=== PATIENT | female | born 1945 | race Asian ===

== ENCOUNTER 2018-01-23 13:38 | Inpatient (IN) | payer MEDICARE, BC ==
[~2018-01-23] VITALS: Ht 152.4 cm; Wt 61.7 kg
[2018-01-23] MEDS ORDERED: Norco 5mg/325mg tab ORAL ONE (14:00)
[2018-01-23 14:08] VITALS: BP 128/69
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
--- NOTE | 2018-01-23 16:27 | Diagnostic Imaging Report ---
Clinical Indication: Chest pain, lateral rib cage tenderness, pain with inhalation Technique: Spiral acquisitions obtained through the chest. No IV contrast utilized, reason not stated. Multiplanar reconstructions generated. Total dose length product 615.97 mGycm. CTDIvol(s) 17.31 mGy. Dose reduction achieved using automated exposure control Comparison: none Findings: There is a subtle nondisplaced fracture of the anterolateral left seventh rib. There is also a fracture of the anterolateral left sixth rib near the costochondral margin. There is a fracture of the lateral ninth rib which is nondisplaced. No definite rib fractures on the right. No other fractures demonstrated. No evidence of pneumothorax or pulmonary contusion. No significant chest wall contusion demonstrated. The lungs are clear separate for minimal basilar atelectatic changes. No infiltrates, effusions, or congestion. The heart size is normal. No pericardial effusion. No substernal hematoma. No mediastinal or hilar mass or adenopathy. The included portions of the thyroid are unremarkable. No axillary or chest wall mass or adenopathy. Included upper abdominal anatomy demonstrates considerable fluid in the stomach. Impression: Multiple left rib fractures, as described. No evidence of underlying pneumothorax Minimal basilar atelectasis. Otherwise clear lungs The CT scanner at [facility] is accredited by the [employer] and the scans are performed using protocols designed to limit radiation exposure to as low as reasonably achievable to attain images of sufficient resolution adequate for diagnostic evaluation.
[2018-01-23] MEDS ORDERED: Morphine Sulfate 4mg/ml Inj (IV/IM USE ONLY) IVP ONE (16:45)
[2018-01-23] MEDS ORDERED: LOSARTAN POTASS50 MG ORAL (17:15)
[2018-01-23 17:22] LABS: ANION GAP 8 mmol/L (5-15); BASOPHILS % (AUTO) 0.7 % (0.0-2.0); BLOOD UREA NITROGEN 20 mg/dL (7-18); CALCIUM 8.9 MG/DL (8.5-10.1); CARBON DIOXIDE 27 MMOL/L (21-32); CHLORIDE 105 MMOL/L (98-107); EOSINOPHILS % (AUTO) 0.5 % (0.0-3.0); HEMATOCRIT 37.5 % (37.0-47.0); HEMOGLOBIN 13.1 G/DL (12.0-16.0); LYMPHOCYTES % (AUTO) 19.3 % (20.0-45.0); MEAN CORPUSCULAR VOLUME 93 FL (80-99); MONOCYTES % (AUTO) 6.8 % (1.0-10.0); NEUTROPHILS % (AUTO) 72.8 % (45.0-75.0); PLATELET COUNT 163 K/UL (150-450); POTASSIUM 3.7 MMOL/L (3.5-5.1); RED BLOOD COUNT 4.01 M/UL (4.20-5.40); RED CELL DISTRIBUTION WIDTH 11.3 % (11.6-14.8); SODIUM 140 MMOL/L (136-145); WHITE BLOOD COUNT 7.5 K/UL (4.8-10.8)
[2018-01-23 17:27] LABS: ALANINE AMINOTRANSFERASE 43 U/L (12-78); ALBUMIN 3.2 G/DL (3.4-5.0); ALBUMIN/GLOBULIN RATIO 0.8 (1.0-2.7); ALKALINE PHOSPHATASE 57 U/L (46-116); ASPARTATE AMINO TRANSFERASE 31 U/L (15-37); BILIRUBIN,TOTAL 0.6 MG/DL (0.2-1.0)
[2018-01-23] MEDS ORDERED: LEVAQUIN500 MG ORAL (17:42)
[2018-01-23] MEDS ORDERED: AMOXICILLI250 MG/5 M ORAL (17:42)
[2018-01-23] MEDS ORDERED: AMLODIPINE BESYL5 MG ORAL (17:42)
--- NOTE | 2018-01-23 19:07 | History & Physical ---
History and Physical History & Physicial Dictated for Int Med-Dr Durham no. [id number]. Marcus French MD Jan 23, 2018 19:07
[2018-01-23 20:00] VITALS: BP 135/79
[2018-01-23] MEDS ORDERED: Miralax 17gm pkt ORAL PRN (20:45)
[2018-01-23] MEDS ORDERED: Mylanta II UD 30ml ORAL PRN (20:45)
[2018-01-23] MEDS ORDERED: Zolpidem 5mg tab ORAL PRN (20:45)
[2018-01-23] MEDS ORDERED: Morphine Sulfate 4mg/ml Inj (IV/IM USE ONLY) IVP PRN (20:45)
[2018-01-23] MEDS ORDERED: Morphine Sulfate 2mg/ml Inj IVP PRN (20:45)
[2018-01-23] MEDS ORDERED: LORazepam Inj 2mg/ml 1ml IV PRN (20:45)
[2018-01-23 20:50] VITALS: BP 126/71
[2018-01-23] MEDS: Heparin 5000 units/ml inj SUBQ SCH (21:00)
[2018-01-23 21:20] VITALS: BP 129/70
[2018-01-23] MEDS ORDERED: Losartan 50mg tab ORAL SCH (21:25)
[2018-01-23] MEDS ORDERED: ALPRAZolam 0.5mg tab ORAL PRN (21:28)
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
[2018-01-24] VITALS: BP 109/65
[2018-01-24 04:00] VITALS: BP 118/70
[2018-01-24 06:17] LABS: BASOPHILS % (AUTO) 0.6 % (0.0-2.0); EOSINOPHILS % (AUTO) 0.7 % (0.0-3.0); HEMATOCRIT 38.1 % (37.0-47.0); HEMOGLOBIN 13.3 G/DL (12.0-16.0); LYMPHOCYTES % (AUTO) 19.6 % (20.0-45.0); MEAN CORPUSCULAR VOLUME 92 FL (80-99); MONOCYTES % (AUTO) 7.8 % (1.0-10.0); NEUTROPHILS % (AUTO) 71.3 % (45.0-75.0); PLATELET COUNT 158 K/UL (150-450); RED BLOOD COUNT 4.16 M/UL (4.20-5.40); RED CELL DISTRIBUTION WIDTH 11.7 % (11.6-14.8); WHITE BLOOD COUNT 6.5 K/UL (4.8-10.8)
[2018-01-24 06:38] LABS: ALANINE AMINOTRANSFERASE 37 U/L (12-78); ALBUMIN 3.1 G/DL (3.4-5.0); ALBUMIN/GLOBULIN RATIO 0.8 (1.0-2.7); ALKALINE PHOSPHATASE 53 U/L (46-116); ANION GAP 5 mmol/L (5-15); ASPARTATE AMINO TRANSFERASE 26 U/L (15-37); BILIRUBIN,TOTAL 0.7 MG/DL (0.2-1.0); BLOOD UREA NITROGEN 17 mg/dL (7-18); CALCIUM 8.5 MG/DL (8.5-10.1); CARBON DIOXIDE 28 MMOL/L (21-32); CHLORIDE 105 MMOL/L (98-107); CREATININE 0.9 MG/DL (0.55-1.30); POTASSIUM 3.4 MMOL/L (3.5-5.1); SODIUM 138 MMOL/L (136-145)
[2018-01-24 08:00] VITALS: BP 110/67
[2018-01-24] MEDS: Heparin 5000 units/ml inj SUBQ SCH ×2 (09:11→20:43)
[2018-01-24] MEDS: Losartan 50mg tab ORAL SCH ×2 (09:11→20:33)
[2018-01-24] MEDS ORDERED: Norco 5mg/325mg tab ORAL PRN (09:15)
--- NOTE | 2018-01-24 09:15 | Consultation ---
History of Present Illness General Date patient seen: Jan 24, 2018 Present Illness Allergies: Coded Allergies: No Known Allergies (Unverified , 01/23/18) Medication History Scheduled Amlodipine Besylate* (Amlodipine Besylate*), 5 MG ORAL DAILY, (Reported) Amoxicillin* (Amoxicillin*), 500 MG ORAL EVERY 8 HOURS, (Reported) Levofloxacin* (Levaquin*), 500 MG ORAL DAILY, (Reported) Losartan Potassium* (Losartan Potassium*), 100 MG ORAL DAILY, (Reported) Patient History Healthcare decision maker N Resuscitation status Advanced Directive on File Physical Exam Last 24 Hour Vital Signs Date Time Temp Pulse Resp B/P (MAP) Pulse Ox O2 Delivery O2 Flow Rate FiO2 01/24/18 09:11 116/73 01/24/18 04:00 97.7 80 18 118/70 (86) 98 01/24/18 00:00 98.8 87 18 109/65 (80) 98 01/23/18 21:24 Room Air 01/23/18 21:20 98.0 84 20 129/70 (89) 98 01/23/18 21:00 97.6 75 18 126/71 100 Room Air 01/23/18 20:50 97.6 75 18 126/71 100 Room Air 01/23/18 20:00 98.3 79 18 135/79 98 Room Air 01/23/18 18:08 98.1 01/23/18 18:08 98.1 01/23/18 14:08 98.1 86 16 128/69 96 Room Air 01/23/18 13:54 98.1 86 16 128/69 96 Room Air Intake and Output 01/23/18 01/24/18 19:00 07:00 Intake Total 120 ml 120 ml Balance 120 ml 120 ml Intake Oral 120 ml 120 ml # Voids 3 Laboratory Tests Test 01/23/18 16:50 01/23/18 17:50 01/24/18 05:40 White Blood Count 7.5 K/UL (4.8-10.8) 6.5 K/UL (4.8-10.8) Red Blood Count 4.01 M/UL (4.20-5.40) L 4.16 M/UL (4.20-5.40) L Hemoglobin 13.1 G/DL (12.0-16.0) 13.3 G/DL (12.0-16.0) Hematocrit 37.5 % (37.0-47.0) 38.1 % (37.0-47.0) Mean Corpuscular Volume 93 FL (80-99) 92 FL (80-99) Mean Corpuscular Hemoglobin 32.6 PG (27.0-31.0) H 31.9 PG (27.0-31.0) H Mean Corpuscular Hemoglobin Concent 34.9 G/DL (32.0-36.0) 34.8 G/DL (32.0-36.0) Red Cell Distribution Width 11.3 % (11.6-14.8) L 11.7 % (11.6-14.8) Platelet Count 163 K/UL (150-450) 158 K/UL (150-450) Mean Platelet Volume 7.6 FL (6.5-10.1) 8.0 FL (6.5-10.1) Neutrophils (%) (Auto) 72.8 % (45.0-75.0) 71.3 % (45.0-75.0) Lymphocytes (%) (Auto) 19.3 % (20.0-45.0) L 19.6 % (20.0-45.0) L Monocytes (%) (Auto) 6.8 % (1.0-10.0) 7.8 % (1.0-10.0) Eosinophils (%) (Auto) 0.5 % (0.0-3.0) 0.7 % (0.0-3.0) Basophils (%) (Auto) 0.7 % (0.0-2.0) 0.6 % (0.0-2.0) Sodium Level 140 MMOL/L (136-145) 138 MMOL/L (136-145) Potassium Level 3.7 MMOL/L (3.5-5.1) 3.4 MMOL/L (3.5-5.1) L Chloride Level 105 MMOL/L (98-107) 105 MMOL/L (98-107) Carbon Dioxide Level 27 MMOL/L (21-32) 28 MMOL/L (21-32) Anion Gap 8 mmol/L (5-15) 5 mmol/L (5-15) Blood Urea Nitrogen 20 mg/dL (7-18) H 17 mg/dL (7-18) Creatinine 1.0 MG/DL (0.55-1.30) 0.9 MG/DL (0.55-1.30) Estimat Glomerular Filtration Rate mL/min (>60) mL/min (>60) Glucose Level 136 MG/DL (74-106) H 131 MG/DL (74-106) H Calcium Level 8.9 MG/DL (8.5-10.1) 8.5 MG/DL (8.5-10.1) Total Bilirubin 0.6 MG/DL (0.2-1.0) 0.7 MG/DL (0.2-1.0) Aspartate Amino Transf (AST/SGOT) 31 U/L (15-37) 26 U/L (15-37) Alanine Aminotransferase (ALT/SGPT) 43 U/L (12-78) 37 U/L (12-78) Alkaline Phosphatase 57 U/L (46-116) 53 U/L (46-116) Total Protein 7.1 G/DL (6.4-8.2) 6.8 G/DL (6.4-8.2) Albumin 3.2 G/DL (3.4-5.0) L 3.1 G/DL (3.4-5.0) L Globulin 3.9 g/dL 3.7 g/dL Albumin/Globulin Ratio 0.8 (1.0-2.7) L 0.8 (1.0-2.7) L Prothrombin Time 10.8 SEC (9.30-11.50) Prothromb Time International Ratio 1.0 (0.9-1.1) Activated Partial Thromboplast Time 26 SEC (23-33) Troponin I 0.000 ng/mL (0.000-0.056) Lipase 206 U/L (73-393) Thyroid Stimulating Hormone (TSH) 5.393 uiU/mL (0.358-3.740) Height (Feet): 5 Height (Inches): 0.00 Weight (Pounds): 136 Medications Current Medications Medications (Trade) Dose Ordered Sig/[place] Route PRN Reason Start Time Stop Time Status Last Admin Dose Admin Acetaminophen (Tylenol) 650 mg Q4H PRN ORAL fever 01/23/18 20:45 02/22/18 20:44 Al Hydroxide/Mg Hydroxide (Mylanta II) 30 ml Q6H PRN ORAL dyspepsia 01/23/18 20:45 02/22/18 20:44 Alprazolam (Xanax) 0.5 mg Q6H PRN ORAL For Anxiety 01/23/18 21:28 01/30/18 21:27 Barium Sulfate (Readi-Cat 2) 450 ml NOW PRN ORAL Radiology Procedure 01/23/18 18:45 01/25/18 18:45 Dextrose (Dextrose 50%) 25 ml Q30M PRN IV Hypoglycemia 01/23/18 20:45 02/22/18 20:44 Dextrose (Dextrose 50%) 50 ml Q30M PRN IV Hypoglycemia 01/23/18 20:45 02/22/18 20:44 Heparin Sodium (Porcine) (Heparin 5000 units/ml) 5,000 units EVERY 12 HOURS SUBQ 01/23/18 21:00 02/22/18 20:59 01/24/18 09:11 Losartan Potassium (Cozaar) 50 mg EVERY 12 HOURS ORAL 01/24/18 09:00 02/22/18 21:24 01/24/18 09:11 Morphine Sulfate (Morphine Sulfate) 2 mg Q4H PRN IVP For Pain 4-6 01/23/18 20:45 01/30/18 20:44 Morphine Sulfate (Morphine Sulfate) 4 mg Q4H PRN IVP For Pain 7-10 01/23/18 20:45 01/30/18 20:44 Ondansetron HCl (Zofran) 4 mg Q6H PRN IVP Nausea & Vomiting 01/23/18 20:45 02/22/18 20:44 Polyethylene Glycol (Miralax) 17 gm HSPRN PRN ORAL Constipation 01/23/18 20:45 02/22/18 20:44 Zolpidem Tartrate (Ambien) 5 mg HSPRN PRN ORAL Insomnia 01/23/18 20:45 01/30/18 20:44 Assessment/Plan Assessment/Plan (1) Multiple rib fractures (2) Intractable pain Seen dictated Aldo Carey Jan 24, 2018 09:15
[2018-01-24 12:00] VITALS: BP 121/75
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
[2018-01-24] MEDS ORDERED: HYDROcodone/Acetamin 10/325 tab ORAL PRN (15:15)
[2018-01-24] MEDS ORDERED: Morphine Sulfate 4mg/ml Inj (IV/IM USE ONLY) IVP PRN (15:15)
[2018-01-24 16:00] VITALS: BP 101/60
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
[2018-01-24] MEDS: Docusate 100mg cap ORAL SCH (17:04)
[2018-01-24 20:00] VITALS: BP 107/60
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
--- NOTE | 2018-01-24 20:15 | General Progress Note ---
Assessment/Plan Problem List: (1) Anxiety disorder ICD Codes: F41.9 - Anxiety disorder, unspecified SNOMED: 526589589 Status: stable, progressing Assessment/Plan dc per larsen lonnie provided ro/st d/w daughter Subjective Date patient seen: Jan 24, 2018 Neurologic/Psychiatric: Reports: anxiety, depressed, emotional problems Allergies: Coded Allergies: No Known Allergies (Unverified , 01/23/18) Objective Last 24 Hour Vital Signs Date Time Temp Pulse Resp B/P (MAP) Pulse Ox O2 Delivery O2 Flow Rate FiO2 01/24/18 16:00 98.0 75 18 101/60 (74) 98 01/24/18 12:00 97.6 83 18 121/75 (90) 98 01/24/18 09:11 116/73 01/24/18 09:00 Room Air 01/24/18 08:00 98.1 77 18 110/67 (81) 98 01/24/18 04:00 97.7 80 18 118/70 (86) 98 01/24/18 00:00 98.8 87 18 109/65 (80) 98 01/23/18 21:24 Room Air 01/23/18 21:20 98.0 84 20 129/70 (89) 98 01/23/18 21:00 97.6 75 18 126/71 100 Room Air 01/23/18 20:50 97.6 75 18 126/71 100 Room Air Intake and Output 01/23/18 01/24/18 18:59 06:59 Intake Total 120 ml 120 ml Balance 120 ml 120 ml Intake Oral 120 ml 120 ml # Voids 3 Laboratory Tests 01/24/18 05:40: White Blood Count 6.5, Red Blood Count 4.16L, Hemoglobin 13.3, Hematocrit 38.1, Mean Corpuscular Volume 92, Mean Corpuscular Hemoglobin 31.9H, Mean Corpuscular Hemoglobin Concent 34.8, Red Cell Distribution Width 11.7, Platelet Count 158, Mean Platelet Volume 8.0, Neutrophils (%) (Auto) 71.3, Lymphocytes (%) (Auto) 19.6L, Monocytes (%) (Auto) 7.8, Eosinophils (%) (Auto) 0.7, Basophils (%) (Auto ) 0.6, Sodium Level 138, Potassium Level 3.4L, Chloride Level 105, Carbon Dioxide Level 28, Anion Gap 5, Blood Urea Nitrogen 17, Creatinine 0.9, Estimat Glomerular Filtration Rate , Glucose Level 131H, Calcium Level 8.5, Total Bilirubin 0.7, Aspartate Amino Transf (AST/SGOT) 26, Alanine Aminotransferase ( ALT/SGPT) 37, Alkaline Phosphatase 53, Total Protein 6.8, Albumin 3.1L, Globulin 3.7, Albumin/Globulin Ratio 0.8L, Thyroid Stimulating Hormone (TSH) 5.393H Height (Feet): 5 Height (Inches): 0.00 Weight (Pounds): 136 General Appearance: no apparent distress, alert Neurologic: oriented x 3, responsive, depressed affect Mac Brown MD Jan 24, 2018 20:15
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
[2018-01-25] VITALS (7 sets, daily range): BP systolic 94–124; BP diastolic 55–78
[2018-01-25 06:36] LABS: ANION GAP 3 mmol/L (5-15); BASOPHILS % (AUTO) 0.6 % (0.0-2.0); BLOOD UREA NITROGEN 15 mg/dL (7-18); CALCIUM 8.9 MG/DL (8.5-10.1); CARBON DIOXIDE 31 MMOL/L (21-32); CHLORIDE 107 MMOL/L (98-107); CREATININE 0.8 MG/DL (0.55-1.30); EOSINOPHILS % (AUTO) 1.1 % (0.0-3.0); HEMOGLOBIN 13.6 G/DL (12.0-16.0); LYMPHOCYTES % (AUTO) 32.6 % (20.0-45.0); MEAN CORPUSCULAR VOLUME 92 FL (80-99); MONOCYTES % (AUTO) 6.9 % (1.0-10.0); NEUTROPHILS % (AUTO) 58.8 % (45.0-75.0); PLATELET COUNT 157 K/UL (150-450); POTASSIUM 4.5 MMOL/L (3.5-5.1); RED BLOOD COUNT 4.23 M/UL (4.20-5.40); RED CELL DISTRIBUTION WIDTH 11.5 % (11.6-14.8); SODIUM 140 MMOL/L (136-145); WHITE BLOOD COUNT 6.1 K/UL (4.8-10.8)
[2018-01-25] MEDS: Losartan 50mg tab ORAL SCH ×2 (08:43→20:50)
[2018-01-25] MEDS: Docusate 100mg cap ORAL SCH ×2 (08:43→18:00)
[2018-01-25] MEDS: Heparin 5000 units/ml inj SUBQ SCH ×2 (08:44→20:51)
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
[2018-01-25] MEDS ORDERED: Norco 5mg/325mg tab ORAL PRN (09:30)
[2018-01-25] MEDS ORDERED: LORazepam Inj 2mg/ml 1ml IV SCH ×2 (09:33→13:49)
--- NOTE | 2018-01-25 12:12 | Pulmonology Progress Note ---
Assessment/Plan Problems: (1) Multiple rib fractures (2) Intractable pain (3) History of hypertension Assessment/Plan pain management MRI of spine to rule out fracture symptomatic treatment dvt prophylaxis dc planning Subjective ROS Limited/Unobtainable: No Interval Events: pain better controlled Allergies: Coded Allergies: No Known Allergies (Unverified , 01/23/18) Objective Last 24 Hour Vital Signs Date Time Temp Pulse Resp B/P (MAP) Pulse Ox O2 Delivery O2 Flow Rate FiO2 01/25/18 08:43 124/73 01/25/18 08:30 Room Air 01/25/18 08:00 97.5 91 21 124/73 (90) 98 01/25/18 04:00 98.1 73 19 102/63 (76) 96 01/25/18 00:00 97.3 62 19 116/55 (75) 97 01/24/18 21:00 Room Air 01/24/18 20:33 107/60 01/24/18 20:00 97.0 74 19 107/60 (76) 96 01/24/18 16:00 98.0 75 18 101/60 (74) 98 Intake and Output 01/24/18 01/25/18 19:00 07:00 Intake Total 480 ml 120 ml Output Total 30 ml Balance 480 ml 90 ml Intake Oral 480 ml 120 ml Output Emesis 30 ml # Voids 3 2 # Bowel Movements 1 General Appearance: WD/WN HEENT: normocephalic, atraumatic Respiratory/Chest: chest wall non-tender, lungs clear Breasts: no masses Cardiovascular: normal rate Abdomen: normal bowel sounds, no organomegaly Genitourinary: normal external genitalia Extremities: no cyanosis, no clubbing Skin: no rash 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 Lymphatic: no neck adenopathy Laboratory Tests 01/25/18 05:40: White Blood Count 6.1, Red Blood Count 4.23, Hemoglobin 13.6, Hematocrit 39.0, Mean Corpuscular Volume 92, Mean Corpuscular Hemoglobin 32.2H, Mean Corpuscular Hemoglobin Concent 34.9, Red Cell Distribution Width 11.5L, Platelet Count 157, Mean Platelet Volume 7.7, Neutrophils (%) (Auto) 58.8, Lymphocytes (%) (Auto) 32.6, Monocytes (%) (Auto) 6.9, Eosinophils (%) (Auto) 1.1, Basophils (%) (Auto ) 0.6, Sodium Level 140, Potassium Level 4.5, Chloride Level 107, Carbon Dioxide Level 31, Anion Gap 3L, Blood Urea Nitrogen 15, Creatinine 0.8, Estimat Glomerular Filtration Rate , Glucose Level 107H, Calcium Level 8.9 Current Medications Medications (Trade) Dose Ordered Sig/[place] Route PRN Reason Start Time Stop Time Status Last Admin Dose Admin Acetaminophen (Tylenol) 650 mg Q4H PRN ORAL fever 01/23/18 20:45 02/22/18 20:44 Acetaminophen/ Hydrocodone Bitart ([place] 5/325) 1 tab Q4H PRN ORAL Moderate Pain (Pain Scale 4-6) 01/25/18 09:30 02/01/18 09:29 Al Hydroxide/Mg Hydroxide (Mylanta II) 30 ml Q6H PRN ORAL dyspepsia 01/23/18 20:45 02/22/18 20:44 Alprazolam (Xanax) 0.5 mg Q6H PRN ORAL For Anxiety 01/23/18 21:28 01/30/18 21:27 Barium Sulfate (Readi-Cat 2) 450 ml NOW PRN ORAL Radiology Procedure 01/23/18 18:45 01/25/18 18:45 Dextrose (Dextrose 50%) 25 ml Q30M PRN IV Hypoglycemia 01/23/18 20:45 02/22/18 20:44 Dextrose (Dextrose 50%) 50 ml Q30M PRN IV Hypoglycemia 01/23/18 20:45 02/22/18 20:44 Docusate Sodium (Colace) 100 mg TWICE A DAY ORAL 01/24/18 18:00 02/23/18 17:59 01/25/18 08:43 Gabapentin (Neurontin) 100 mg THREE TIMES A DAY ORAL 01/25/18 09:30 02/24/18 09:29 01/25/18 09:38 Heparin Sodium (Porcine) (Heparin 5000 units/ml) 5,000 units EVERY 12 HOURS SUBQ 01/23/18 21:00 02/22/18 20:59 01/25/18 08:44 Lidocaine (Lidoderm 5% PATCH) 1 patch DAILY TDERMAL 01/25/18 09:00 02/24/18 08:59 01/25/18 08:44 Losartan Potassium (Cozaar) 50 mg EVERY 12 HOURS ORAL 01/24/18 09:00 02/22/18 21:24 01/25/18 08:43 Morphine Sulfate (Morphine Sulfate) 4 mg Q4H PRN IVP severe pain 01/24/18 15:15 01/31/18 15:14 Ondansetron HCl (Zofran) 4 mg Q6H PRN IVP Nausea & Vomiting 01/23/18 20:45 02/22/18 20:44 Polyethylene Glycol (Miralax) 17 gm HSPRN PRN ORAL Constipation 01/23/18 20:45 02/22/18 20:44 Zolpidem Tartrate (Ambien) 5 mg HSPRN PRN ORAL Insomnia 01/23/18 20:45 01/30/18 20:44 Pawan Sam MD Jan 25, 2018 12:12
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
[2018-01-26 04:00] VITALS: BP 112/71
[2018-01-26 06:23] LABS: BASOPHILS % (AUTO) 0.8 % (0.0-2.0); EOSINOPHILS % (AUTO) 1.7 % (0.0-3.0); HEMATOCRIT 42.2 % (37.0-47.0); HEMOGLOBIN 14.2 G/DL (12.0-16.0); MEAN CORPUSCULAR VOLUME 93 FL (80-99); MONOCYTES % (AUTO) 7.4 % (1.0-10.0); NEUTROPHILS % (AUTO) 54.2 % (45.0-75.0); PLATELET COUNT 171 K/UL (150-450); RED BLOOD COUNT 4.56 M/UL (4.20-5.40); RED CELL DISTRIBUTION WIDTH 11.5 % (11.6-14.8); WHITE BLOOD COUNT 6.2 K/UL (4.8-10.8)
[2018-01-26 06:30] LABS: ANION GAP 5 mmol/L (5-15); BLOOD UREA NITROGEN 14 mg/dL (7-18); CALCIUM 9.1 MG/DL (8.5-10.1); CARBON DIOXIDE 32 MMOL/L (21-32); CHLORIDE 105 MMOL/L (98-107); CREATININE 0.8 MG/DL (0.55-1.30); POTASSIUM 4.3 MMOL/L (3.5-5.1); SODIUM 142 MMOL/L (136-145)
[2018-01-26 08:00] VITALS: BP 116/78
[2018-01-26] MEDS: Docusate 100mg cap ORAL SCH ×2 (08:44→17:00)
[2018-01-26] MEDS: Losartan 50mg tab ORAL SCH ×2 (08:45→21:00)
[2018-01-26] MEDS: Heparin 5000 units/ml inj SUBQ SCH ×2 (08:50→21:00)
[2018-01-26 12:00] VITALS: BP 95/56
[2018-01-26 15:50] VITALS: BP 121/77
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
[2018-01-26 20:00] VITALS: BP 102/57
--- NOTE | 2018-01-26 22:56 | General Progress Note ---
Assessment/Plan Problem List: (1) Anxiety disorder ICD Codes: F41.9 - Anxiety disorder, unspecified SNOMED: [id number] Assessment/Plan dc atkita husainapolinarrita admienn provided ro/st d/w daughter Subjective Neurologic/Psychiatric: Reports: anxiety, depressed, emotional problems Allergies: Coded Allergies: No Known Allergies (Unverified , 01/23/18) Objective Last 24 Hour Vital Signs Date Time Temp Pulse Resp B/P (MAP) Pulse Ox O2 Delivery O2 Flow Rate FiO2 01/26/18 21:00 102/57 01/26/18 21:00 Room Air 01/26/18 20:00 98.1 75 20 102/57 (72) 95 01/26/18 15:50 97.7 71 18 121/77 (92) 95 01/26/18 13:03 97.5 01/26/18 12:00 97.5 70 16 95/56 (69) 95 01/26/18 09:00 Room Air 01/26/18 08:45 116/78 01/26/18 08:00 97.7 73 16 116/78 (91) 95 01/26/18 04:00 97.5 71 19 112/71 (85) 96 01/25/18 23:51 98.1 65 18 100/64 (76) 97 Intake and Output 01/25/18 01/26/18 19:00 07:00 Intake Total 480 ml Balance 480 ml Intake Oral 480 ml # Voids 2 1 # Bowel Movements 1 Laboratory Tests 01/26/18 05:10: White Blood Count 6.2, Red Blood Count 4.56, Hemoglobin 14.2, Hematocrit 42.2, Mean Corpuscular Volume 93, Mean Corpuscular Hemoglobin 31.1H, Mean Corpuscular Hemoglobin Concent 33.6, Red Cell Distribution Width 11.5L, Platelet Count 171, Mean Platelet Volume 7.9, Neutrophils (%) (Auto) 54.2, Lymphocytes (%) (Auto) 36.0, Monocytes (%) (Auto) 7.4, Eosinophils (%) (Auto) 1.7, Basophils (%) (Auto ) 0.8, Sodium Level 142, Potassium Level 4.3, Chloride Level 105, Carbon Dioxide Level 32, Anion Gap 5, Blood Urea Nitrogen 14, Creatinine 0.8, Estimat Glomerular Filtration Rate , Glucose Level 101, Calcium Level 9.1 Height (Feet): 5 Height (Inches): 0.00 Weight (Pounds): 136 General Appearance: alert, moderate distress Neurologic: oriented x 3, responsive, depressed affect Mac Brown MD Jan 26, 2018 22:56
[2018-01-27 04:00] VITALS: BP 110/62
[2018-01-27 06:10] LABS: BASOPHILS % (AUTO) 0.6 % (0.0-2.0); EOSINOPHILS % (AUTO) 2.1 % (0.0-3.0); HEMOGLOBIN 13.1 G/DL (12.0-16.0); LYMPHOCYTES % (AUTO) 42.8 % (20.0-45.0); MEAN CORPUSCULAR VOLUME 92 FL (80-99); MONOCYTES % (AUTO) 8.1 % (1.0-10.0); NEUTROPHILS % (AUTO) 46.4 % (45.0-75.0); PLATELET COUNT 152 K/UL (150-450); RED BLOOD COUNT 4.12 M/UL (4.20-5.40); RED CELL DISTRIBUTION WIDTH 11.6 % (11.6-14.8); WHITE BLOOD COUNT 4.8 K/UL (4.8-10.8)
[2018-01-27 07:09] LABS: ANION GAP 8 mmol/L (5-15); BLOOD UREA NITROGEN 13 mg/dL (7-18); CALCIUM 8.8 MG/DL (8.5-10.1); CARBON DIOXIDE 30 MMOL/L (21-32); CHLORIDE 105 MMOL/L (98-107); CREATININE 0.9 MG/DL (0.55-1.30); POTASSIUM 4.2 MMOL/L (3.5-5.1); SODIUM 143 MMOL/L (136-145)
[2018-01-27 08:00] VITALS: BP 129/79
[2018-01-27] MEDS: Docusate 100mg cap ORAL SCH ×2 (08:52→18:19)
[2018-01-27] MEDS: Losartan 50mg tab ORAL SCH ×2 (08:53→21:08)
[2018-01-27] MEDS: Heparin 5000 units/ml inj SUBQ SCH ×2 (08:54→21:07)
[2018-01-27] MEDS ORDERED: LORazepam Inj 2mg/ml 1ml IV PRN (11:00)
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
[2018-01-27 12:00] VITALS: BP 131/79
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
--- NOTE | 2018-01-27 14:16 | Cardiac Electrophysiology PN ---
Subjective Subjective [id number] Objective Last 24 Hour Vital Signs Date Time Temp Pulse Resp B/P (MAP) Pulse Ox O2 Delivery O2 Flow Rate FiO2 01/27/18 12:00 98.0 60 20 131/79 (96) 97 01/27/18 09:00 Room Air 01/27/18 08:53 129/79 01/27/18 08:00 97.9 77 20 129/79 (96) 97 01/27/18 04:00 97.9 67 16 110/62 (78) 97 01/26/18 21:00 102/57 01/26/18 21:00 Room Air 01/26/18 20:00 98.1 75 20 102/57 (72) 95 01/26/18 15:50 97.7 71 18 121/77 (92) 95 Intake and Output 01/26/18 01/27/18 19:00 07:00 Intake Total 220 ml Balance 220 ml Intake Oral 220 ml # Voids 3 2 Laboratory Tests Test 01/27/18 04:40 White Blood Count 4.8 K/UL (4.8-10.8) Red Blood Count 4.12 M/UL (4.20-5.40) L Hemoglobin 13.1 G/DL (12.0-16.0) Hematocrit 38.0 % (37.0-47.0) Mean Corpuscular Volume 92 FL (80-99) Mean Corpuscular Hemoglobin 31.7 PG (27.0-31.0) H Mean Corpuscular Hemoglobin Concent 34.4 G/DL (32.0-36.0) Red Cell Distribution Width 11.6 % (11.6-14.8) Platelet Count 152 K/UL (150-450) Mean Platelet Volume 7.3 FL (6.5-10.1) Neutrophils (%) (Auto) 46.4 % (45.0-75.0) Lymphocytes (%) (Auto) 42.8 % (20.0-45.0) Monocytes (%) (Auto) 8.1 % (1.0-10.0) Eosinophils (%) (Auto) 2.1 % (0.0-3.0) Basophils (%) (Auto) 0.6 % (0.0-2.0) Sodium Level 143 MMOL/L (136-145) Potassium Level 4.2 MMOL/L (3.5-5.1) Chloride Level 105 MMOL/L (98-107) Carbon Dioxide Level 30 MMOL/L (21-32) Anion Gap 8 mmol/L (5-15) Blood Urea Nitrogen 13 mg/dL (7-18) Creatinine 0.9 MG/DL (0.55-1.30) Estimat Glomerular Filtration Rate mL/min (>60) Glucose Level 97 MG/DL (74-106) Calcium Level 8.8 MG/DL (8.5-10.1) Benjie Julio MD Jan 27, 2018 14:16
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
[2018-01-27 15:54] VITALS: BP 110/60
[2018-01-27 20:00] VITALS: BP 138/84
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
--- NOTE | 2018-01-27 23:53 | General Progress Note ---
Assessment/Plan Problem List: (1) Anxiety disorder ICD Codes: F41.9 - Anxiety disorder, unspecified SNOMED: 822131295 Assessment/Plan dc ativan lishaapolinara prn provided ro/st d/w daughter Subjective Neurologic/Psychiatric: Reports: anxiety, depressed, emotional problems Allergies: Coded Allergies: No Known Allergies (Unverified , 01/23/18) Objective Last 24 Hour Vital Signs Date Time Temp Pulse Resp B/P (MAP) Pulse Ox O2 Delivery O2 Flow Rate FiO2 01/27/18 21:08 138/84 01/27/18 15:54 98.0 77 20 110/60 (77) 96 01/27/18 12:00 98.0 60 20 131/79 (96) 97 01/27/18 09:00 Room Air 01/27/18 08:53 129/79 01/27/18 08:00 97.9 77 20 129/79 (96) 97 01/27/18 04:00 97.9 67 16 110/62 (78) 97 Intake and Output 01/26/18 01/27/18 19:00 07:00 Intake Total 220 ml Balance 220 ml Intake Oral 220 ml # Voids 3 2 Laboratory Tests 01/27/18 04:40: White Blood Count 4.8, Red Blood Count 4.12L, Hemoglobin 13.1, Hematocrit 38.0, Mean Corpuscular Volume 92, Mean Corpuscular Hemoglobin 31.7H, Mean Corpuscular Hemoglobin Concent 34.4, Red Cell Distribution Width 11.6, Platelet Count 152, Mean Platelet Volume 7.3, Neutrophils (%) (Auto) 46.4, Lymphocytes (%) (Auto) 42.8, Monocytes (%) (Auto) 8.1, Eosinophils (%) (Auto) 2.1, Basophils (%) (Auto ) 0.6, Sodium Level 143, Potassium Level 4.2, Chloride Level 105, Carbon Dioxide Level 30, Anion Gap 8, Blood Urea Nitrogen 13, Creatinine 0.9, Estimat Glomerular Filtration Rate , Glucose Level 97, Calcium Level 8.8 Height (Feet): 5 Height (Inches): 0.00 Weight (Pounds): 136 General Appearance: alert, mild distress Mac Brown MD Jan 27, 2018 23:53
[2018-01-28] VITALS: BP 104/65
[2018-01-28 04:00] VITALS: BP 122/76
[2018-01-28 08:00] VITALS: BP 122/67
[2018-01-28 08:02] LABS: BASOPHILS % (AUTO) 0.5 % (0.0-2.0); EOSINOPHILS % (AUTO) 2.2 % (0.0-3.0); HEMATOCRIT 40.7 % (37.0-47.0); LYMPHOCYTES % (AUTO) 36.9 % (20.0-45.0); MEAN CORPUSCULAR VOLUME 92 FL (80-99); MONOCYTES % (AUTO) 7.6 % (1.0-10.0); NEUTROPHILS % (AUTO) 52.9 % (45.0-75.0); PLATELET COUNT 174 K/UL (150-450); RED BLOOD COUNT 4.43 M/UL (4.20-5.40); RED CELL DISTRIBUTION WIDTH 11.2 % (11.6-14.8); WHITE BLOOD COUNT 4.7 K/UL (4.8-10.8)
[2018-01-28 08:28] LABS: ALANINE AMINOTRANSFERASE 47 U/L (12-78); ALBUMIN 3.1 G/DL (3.4-5.0); ALBUMIN/GLOBULIN RATIO 0.7 (1.0-2.7); ALKALINE PHOSPHATASE 57 U/L (46-116); ANION GAP 7 mmol/L (5-15); ASPARTATE AMINO TRANSFERASE 41 U/L (15-37); BILIRUBIN,TOTAL 0.4 MG/DL (0.2-1.0); BLOOD UREA NITROGEN 14 mg/dL (7-18); CALCIUM 9.1 MG/DL (8.5-10.1); CARBON DIOXIDE 28 MMOL/L (21-32); CHLORIDE 106 MMOL/L (98-107); CREATININE 0.7 MG/DL (0.55-1.30); POTASSIUM 4.4 MMOL/L (3.5-5.1); SODIUM 141 MMOL/L (136-145)
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
[2018-01-28] MEDS: Losartan 50mg tab ORAL SCH (09:10)
[2018-01-28] MEDS: Docusate 100mg cap ORAL SCH ×2 (09:10→17:10)
[2018-01-28] MEDS: Heparin 5000 units/ml inj SUBQ SCH (09:13)
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
[2018-01-28] MEDS ORDERED: Gadavist 7.5mMol/7.5ml vial IV PRN (10:45)
[2018-01-28 12:00] VITALS: BP 102/67
--- NOTE | 2018-01-28 12:59 | General Progress Note ---
Assessment/Plan Problem List: (1) Anxiety disorder ICD Codes: F41.9 - Anxiety disorder, unspecified SNOMED: 845663055 Status: stable, progressing Assessment/Plan dc per larsen damienn provided ro/st d/w daughter Subjective Date patient seen: Jan 28, 2018 Neurologic/Psychiatric: Reports: anxiety, depressed, emotional problems Allergies: Coded Allergies: No Known Allergies (Unverified , 01/23/18) Objective Last 24 Hour Vital Signs Date Time Temp Pulse Resp B/P (MAP) Pulse Ox O2 Delivery O2 Flow Rate FiO2 01/28/18 12:00 97.8 75 18 102/67 (79) 96 01/28/18 09:10 85 122/67 01/28/18 09:10 122/67 01/28/18 09:00 Room Air 01/28/18 08:00 97.7 85 20 122/67 (85) 94 01/28/18 04:00 97.7 79 19 122/76 (91) 96 01/28/18 00:00 97.3 79 17 104/65 (78) 98 01/27/18 21:08 138/84 01/27/18 21:00 Room Air 01/27/18 20:00 97.2 78 18 138/84 (102) 95 01/27/18 15:54 98.0 77 20 110/60 (77) 96 Intake and Output 01/27/18 01/28/18 19:00 07:00 Intake Total 460 ml 700 ml Balance 460 ml 700 ml Intake Oral 460 ml 700 ml # Voids 4 1 # Bowel Movements 1 Laboratory Tests 01/28/18 06:47: White Blood Count 4.7L, Red Blood Count 4.43, Hemoglobin 14.0, Hematocrit 40.7, Mean Corpuscular Volume 92, Mean Corpuscular Hemoglobin 31.5H, Mean Corpuscular Hemoglobin Concent 34.4, Red Cell Distribution Width 11.2L, Platelet Count 174, Mean Platelet Volume 8.0, Neutrophils (%) (Auto) 52.9, Lymphocytes (%) (Auto) 36.9, Monocytes (%) (Auto) 7.6, Eosinophils (%) (Auto) 2.2, Basophils (%) (Auto ) 0.5, Sodium Level 141, Potassium Level 4.4, Chloride Level 106, Carbon Dioxide Level 28, Anion Gap 7, Blood Urea Nitrogen 14, Creatinine 0.7, Estimat Glomerular Filtration Rate , Glucose Level 100, Calcium Level 9.1, Total Bilirubin 0.4, Aspartate Amino Transf (AST/SGOT) 41H, Alanine Aminotransferase ( ALT/SGPT) 47, Alkaline Phosphatase 57, Total Protein 7.4, Albumin 3.1L, Globulin 4.3, Albumin/Globulin Ratio 0.7L, Hepatitis A IgM Antibody [Pending], Hepatitis B Surface Antigen [Pending], Hepatitis B Core IgM Antibody [Pending], Hepatitis C Antibody [Pending] Height (Feet): 5 Height (Inches): 0.00 Weight (Pounds): 136 General Appearance: no apparent distress, alert Neurologic: oriented x 3, responsive, depressed affect Mac Brown MD Jan 28, 2018 12:59
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
[2018-01-28 16:05] VITALS: BP 113/68
[2018-01-28] MEDS ORDERED: XANAX0.5 MG ORAL (16:48)
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
--- NOTE | 2018-01-28 23:48 | General Progress Note ---
Assessment/Plan Assessment/Plan Assessment - self reported h/o fatty liver - current CT w/o fatty change - normal LFT - needs outpatient colonoscopy Recommendations - continue current Rx - Rx HP as outpt - colonosocpy as outpt Subjective Allergies: Coded Allergies: No Known Allergies (Unverified , 01/23/18) Subjective feels OK no abd c/o for discharge Objective Last 24 Hour Vital Signs Date Time Temp Pulse Resp B/P (MAP) Pulse Ox O2 Delivery O2 Flow Rate FiO2 01/28/18 16:05 97.6 86 18 113/68 (83) 96 01/28/18 12:00 97.8 75 18 102/67 (79) 96 01/28/18 09:10 85 122/67 01/28/18 09:10 122/67 01/28/18 09:00 Room Air 01/28/18 08:00 97.7 85 20 122/67 (85) 94 01/28/18 04:00 97.7 79 19 122/76 (91) 96 01/28/18 00:00 97.3 79 17 104/65 (78) 98 Intake and Output 01/27/18 01/28/18 19:00 07:00 Intake Total 460 ml 700 ml Balance 460 ml 700 ml Intake Oral 460 ml 700 ml # Voids 4 1 # Bowel Movements 1 Laboratory Tests 01/28/18 06:47: White Blood Count 4.7L, Red Blood Count 4.43, Hemoglobin 14.0, Hematocrit 40.7, Mean Corpuscular Volume 92, Mean Corpuscular Hemoglobin 31.5H, Mean Corpuscular Hemoglobin Concent 34.4, Red Cell Distribution Width 11.2L, Platelet Count 174, Mean Platelet Volume 8.0, Neutrophils (%) (Auto) 52.9, Lymphocytes (%) (Auto) 36.9, Monocytes (%) (Auto) 7.6, Eosinophils (%) (Auto) 2.2, Basophils (%) (Auto ) 0.5, Sodium Level 141, Potassium Level 4.4, Chloride Level 106, Carbon Dioxide Level 28, Anion Gap 7, Blood Urea Nitrogen 14, Creatinine 0.7, Estimat Glomerular Filtration Rate , Glucose Level 100, Calcium Level 9.1, Total Bilirubin 0.4, Aspartate Amino Transf (AST/SGOT) 41H, Alanine Aminotransferase ( ALT/SGPT) 47, Alkaline Phosphatase 57, Total Protein 7.4, Albumin 3.1L, Globulin 4.3, Albumin/Globulin Ratio 0.7L, Hepatitis A IgM Antibody [Pending], Hepatitis B Surface Antigen [Pending], Hepatitis B Core IgM Antibody [Pending], Hepatitis C Antibody [Pending] Height (Feet): 5 Height (Inches): 0.00 Weight (Pounds): 136 Objective WDWN woman NCAT supple CTA RRR abdomen soft non edema Xi Medellin MD Jan 28, 2018 23:48
--- NOTE | 2018-01-29 08:41 | Cardiology Report ---
APPROVED REPORT EXAM: Two-dimensional and M-mode echocardiogram with Doppler and color Doppler. INDICATION Hypertension/HCVD M-Mode DIMENSIONS IVSd1.2 (0.7-1.1cm)Left Atrium (MM)2.4 (1.6-4.0cm) LVDd4.8 (3.5-5.6cm)Aortic Root2.7 (2.0-3.7cm) PWd1.3 (0.7-1.1cm)Aortic Cusp Exc.1.6 (1.5-2.0cm) IVSs1.3 cm LVDs3.5 (2.5-4.0cm) PWs1.4 cm Technically difficult study due to pts broken ribs . Normal left ventricular chamber size, systolic function and wall motion. Left ventricular ejection fraction estimated to be 55-60 %. No evidence of left ventricular hypertrophy . No evidence of pericardial effusion. All other cardiac chamber sizes are within normal limits. Focal aortic valve sclerosis with adequate cusp excursion. Thickened mitral valve leaflets with normal excursion. Mitral annulus and aortic root calcification. Normal pulmonic valve structure. Normal tricuspid valve structure. IVC at size 1.8 cm without physiologic collapse, suggestive to increase RA pressure . A color flow and spectral Doppler study was performed and revealed: No aortic regurgitation.. Trace mitral regurgitation. Mitral diastolic velocities suggest reduced left ventricular relaxation c/w mild LV diastolic dysfunction (Grade I ). Mild tricuspid regurgitation. Tricuspid systolic velocities suggests peak right ventricular systolic pressure of 21 mmHg. No Pulmonic regurgitation present.
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
== END 2018-01-28 18:20 | disposition home or self-care (01) | DRG 185 ==
LOC: EMR 14:11 → 4E 16:53 → EDBEDREQ 17:19
DX: S22.42XA Multiple fractures of ribs, left side, initial encounter for closed fracture (principal); I10 Essential (primary) hypertension; K21.9 Gastro-esophageal reflux disease without esophagitis; V48.1XXA Car passenger injured in noncollision transport accident in nontraffic accident, initial encounter; Y92.481 Parking lot as the place of occurrence of the external cause; R07.89 Other chest pain; M94.0 Chondrocostal junction syndrome [Tietze]; M79.672 Pain in left foot; M79.671 Pain in right foot; K76.0 Fatty (change of) liver, not elsewhere classified; S33.5XXA Sprain of ligaments of lumbar spine, initial encounter; S13.4XXA Sprain of ligaments of cervical spine, initial encounter; M51.16 Intervertebral disc disorders with radiculopathy, lumbar region; M54.12 Radiculopathy, cervical region; F41.9 Anxiety disorder, unspecified; E78.00 Pure hypercholesterolemia, unspecified
CPT/HCPCS: 36415; 71250; 71260; 72148; 74177; 80048; 80053; 83690; 84443; 84484; 85025; 85610; 85730; 86705; 86709; 86803; 86850; 86900; 86901; 87340; 93306; 93925; 93970; 96374; 99285; J8499

== ENCOUNTER 2018-06-03 10:34 | Outpatient (CLI) | payer MEDICARE, BC ==
[~2018-06-03 10:34] MED LIST: AMLODIPINE BESYL5 MG ORAL; AMOXICILLI250 MG/5 M ORAL; LEVAQUIN500 MG ORAL; LOSARTAN POTASS50 MG ORAL; XANAX0.5 MG ORAL
== END 2018-06-03 12:34 | disposition home or self-care (01) ==
LOC: RAD 10:34
DX: S22.32XA Fracture of one rib, left side, initial encounter for closed fracture (principal); X58.XXXA Exposure to other specified factors, initial encounter; Y92.9 Unspecified place or not applicable

== ENCOUNTER 2018-09-27 17:35 | Emergency (ER) | payer MEDICARE, BC ==
[~2018-09-27] VITALS: Ht 152.4 cm; Wt 63.5 kg
[2018-09-27 17:46] VITALS: BP 138/76
[2018-09-27] MEDS: Tylenol #3 tab (300mg/30mg) ORAL ONE (19:02)
--- NOTE | 2018-09-27 19:56 | Emergency Room Report ---
History of Present Illness General Chief Complaint: Skin Rash/Abscess Source: Patient Present Illness HPI 73-year-old female presents to the emergency department complaining of 7 out of 10 in severity pain, swelling, erythema and tenderness to the left fourth digit x1 week. Patient reports that initially she had an infection which required drainage and she was placed on antibiotics. Patient states that she sustained an injury when a thin piece of metal punctured her finger at the cuticle line. Patient states that while swelling and purulent discharge have been improving her pain has been progressive and she is concerned that she may have a retained foreign body. Reports that she is up-to-date with her tetanus that she finished her antibiotics for which she does not know the name of. Denies history of immune compromise denies additional injuries to the extremity. Denies finger pad pain. Pt. denies pain with flexion or extension of the affected finger. She has been taking Tylenol without relief. Allergies: Coded Allergies: No Known Allergies (Unverified , 01/23/18) Patient History Past Medical History: see triage record Past Surgical History: none Pertinent Family History: none Now: No Immunizations: UTD Reviewed Nursing Documentation: PMH: Agreed; PSxH: Agreed Nursing Documentation-PMH Past Medical History: No History, Except For Hx Cardiac Problems: Yes - High cholesterol Hx Hypertension: Yes Hx Cancer: No Hx Gastrointestinal Problems: Yes - GERD Hx Neurological Problems: No Review of Systems All Other Systems: negative except mentioned in HPI Physical Exam Vital Signs Date Time Temp Pulse Resp B/P (MAP) Pulse Ox O2 Delivery O2 Flow Rate FiO2 09/27/18 17:46 98.1 85 17 138/76 (96) 96 Room Air Sp02 EP Interpretation: reviewed, normal General Appearance: no apparent distress, alert, GCS 15, non-toxic Head: normocephalic, atraumatic Eyes: bilateral eye normal inspection, bilateral eye PERRL ENT: hearing grossly normal, normal voice Neck: full range of motion Respiratory: lungs clear, normal breath sounds, speaking full sentences Cardiovascular #1: regular rate, rhythm, normal capillary refill Musculoskeletal: back normal, gait/station normal, normal range of motion, non- tender Neurologic: alert, oriented x3, responsive, motor strength/tone normal, sensory intact, speech normal, grossly normal Psychiatric: judgement/insight normal Skin: pallor - erythema, swelling, and purulent d/c at the mediolateral nail fold of the left 4th digit. Medical Decision Making PA Attestation Dr. Barrios is my supervising Physician whom patient management has been discussed with. Diagnostic Impression: Primary Impression: Paronychia of finger Qualified Codes: L03.012 - Cellulitis of left finger ER Course 73-year-old female presents to the emergency department complaining of 7 out of 10 in severity pain, swelling, erythema and tenderness to the left fourth digit x1 week. Patient reports that initially she had an infection which required drainage and she was placed on antibiotics. Patient states that she sustained an injury when a thin piece of metal punctured her finger at the cuticle line. Patient states that while swelling and purulent discharge have been improving her pain has been progressive and she is concerned that she may have a retained foreign body. Reports that she is up-to-date with her tetanus that she finished her antibiotics for which she does not know the name of. Denies history of immune compromise denies additional injuries to the extremity. Denies finger pad pain. Pt. denies pain with flexion or extension of the affected finger. She has been taking Tylenol without relief. Ddx considered but are not limited to cellulitis, paronychia, eponychia, ingrown nail,retained FB. Vital signs: are WNL, pt. is afebrile H&PE are most consistent with Paronychia of mediolateral nail fold of the left 4th digit. ORDERS: --X-ray left hand to rule out foreign bodies: No radiopaque foreign bodies on imaging ED INTERVENTIONS: - Tylenol #3 PO - will d/c pt. with PO abx. Although pt. has been taking abx. moderate infection continues to exist at this time and I feel this pt. would benefit from additional abx. DISCHARGE: At this time pt. is stable for d/c to home. Will provide printed patient care instructions, and any necessary prescriptions. Care plan and follow up instructions have been discussed with the patient prior to discharge. Last Vital Signs Date Time Temp Pulse Resp B/P (MAP) Pulse Ox O2 Delivery O2 Flow Rate FiO2 09/27/18 19:48 98.1 09/27/18 17:46 85 17 138/76 96 Room Air Disposition: HOME, SELF-CARE Condition: Stable Scripts Mupirocin* (MUPIROCIN*) 22 Gm Oint...g. 1 APPLIC TOPIC THREE TIMES A DAY, #22 GM Prov: Carine Kebede 09/27/18 Clindamycin Hcl (CLINDAMYCIN HCL) 300 Mg Capsule 300 MG ORAL FOUR TIMES A DAY for 7 Days, #28 CAP Prov: Carine Kebede 09/27/18 Referrals: NOT CHOSEN IPA/MD,REFERRING (PCP) Patient Instructions: Paronychia Additional Instructions: Take medications as directed. Follow up with a Primary Care Provider in 3-5 days, even if your symptoms have resolved. --Please review list of primary care clinics, if you do not already have a primary care provider Return sooner to ED if new symptoms occur, or current symptoms become worse. - Please note that this Emergency Department Report was dictated using [employer] professional technology software, occasionally this can lead to erroneous entry secondary to interpretation by the dictation equipment. Carine Kebede Sep 27, 2018 19:56
[2018-09-27] MEDS ORDERED: MUPIROCIN22 GM TOPIC (19:58)
[2018-09-27] MEDS ORDERED: CLINDAMYCIN HC300 MG ORAL (19:58)
[2018-09-27 20:14] VITALS: BP 134/74
--- NOTE | 2018-09-28 10:57 | Diagnostic Imaging Report ---
Indication: left hand pain. Comparison: None Findings: 3 views of the left hand were obtained. The bones are osteopenic. There is no fracture or malalignment definitely seen. Soft tissues are unremarkable. Generalized mild joint space narrowing noted within the digits. IMPRESSION: No acute injury. Mild osteoarthritis
== END 2018-09-27 20:14 | disposition home or self-care (01) ==
LOC: EMR 18:05
DX: L03.012 Cellulitis of left finger (principal); I10 Essential (primary) hypertension; K21.9 Gastro-esophageal reflux disease without esophagitis
CPT/HCPCS: 99283

== ENCOUNTER 2018-10-25 13:47 | Emergency (ER) | payer MEDICARE, BC ==
[~2018-10-25] VITALS: Ht 152.4 cm; Wt 65.8 kg
[~2018-10-25 13:47] MED LIST changes: +CLINDAMYCIN HC300 MG ORAL; +MUPIROCIN22 GM TOPIC
--- NOTE | 2018-10-25 13:50 | NUR ---
ED Nurse Note: pt not in wr when called
[2018-10-25 13:54] VITALS: BP 129/63
--- NOTE | 2018-10-25 14:00 | NUR ---
ED Nurse Note: Patient walked into ED c/o left 4th digit pain for about 2 months. patient was seen here for the same sx on September. patient reports that she feels like "tiny, thin metal piece" stuck in her 4th digit. patient is alert awake x4 ambulatory, breathing unlabored and even. patient reports she has been taking abx that has not relieved the pain.
--- NOTE | 2018-10-25 15:00 | Diagnostic Imaging Report ---
Indication: Pain, suspected foreign body Technique: 3 views of the left fourth finger Comparison: none Findings: No acute fractures. No dislocations. No radiopaque foreign body. There is an unusual flattened exostosis coming off of the anterolateral aspect of the distal phalangeal shaft Impression: No acute process. No evidence of radiopaque foreign body
--- NOTE | 2018-10-25 15:03 | Emergency Room Report ---
History of Present Illness General Chief Complaint: Upper Extremity Injury Source: Patient Present Illness HPI 73-year-old female with no significant past medical history here complaining of 4 months of pain in her left middle finger. Patient reports that 4 months ago she had paronychia however refused for it to be drained and only take the antibiotics. X-ray was done and no foreign body was shown. Patient reports that she continues to have pain in that area however has not mentioned it to her primary care provider. Denies any recent injury. Rating the pain 3 out of 10 upon palpation of the affected area. No sign of pus drainage or infection noted. Denies tingling and numbness. Feels like there might be a piece of metal inside her hand. Denies chest pain, shortness of breath, fever and chills , palpitation, and all other associated symptoms. Allergies: Coded Allergies: No Known Allergies (Unverified , 01/23/18) Patient History Past Medical History: see triage record Past Surgical History: unable to obtain Pertinent Family History: none Last Menstrual Period: na Now: No Immunizations: UTD Reviewed Nursing Documentation: PMH: Agreed; PSxH: Agreed Nursing Documentation-PMH Past Medical History: No History, Except For Hx Cardiac Problems: Yes - High cholesterol Hx Hypertension: Yes Hx Cancer: No Hx Gastrointestinal Problems: Yes - GERD Hx Neurological Problems: No Review of Systems All Other Systems: negative except mentioned in HPI Physical Exam Vital Signs Date Time Temp Pulse Resp B/P (MAP) Pulse Ox O2 Delivery O2 Flow Rate FiO2 10/25/18 13:54 98.1 88 20 129/63 98 Room Air Sp02 EP Interpretation: reviewed, normal General Appearance: no apparent distress, alert, GCS 15, non-toxic Head: normocephalic, atraumatic Eyes: bilateral eye normal inspection, bilateral eye PERRL ENT: hearing grossly normal, normal pharynx, no angioedema, normal voice Neck: full range of motion, supple/symm/no masses Respiratory: chest non-tender, lungs clear, normal breath sounds, speaking full sentences Cardiovascular #1: regular rate, rhythm, no edema Gastrointestinal: normal inspection, non tender, soft Genitourinary: no CVA tenderness Musculoskeletal: normal inspection, back normal, digits/nails normal, gait/ station normal, normal range of motion, non-tender Neurologic: normal inspection, alert, oriented x3, responsive Psychiatric: judgement/insight normal, memory normal, mood/affect normal, no suicidal/homicidal ideation Skin: no rash Lymphatic: normal inspection, no adenopathy Medical Decision Making PA Attestation All diagnoses and treatment plans were reviewed and discussed with my supervising physician Dr. Dao Diagnostic Impression: Primary Impression: Finger contusion ER Course 73-year-old female with no significant past medical history here complaining of 4 months of pain in her left middle finger. Patient reports that 4 months ago she had paronychia however refused for it to be drained and only take the antibiotics. X-ray was done and no foreign body was shown. Patient reports that she continues to have pain in that area however has not mentioned it to her primary care provider. Denies any recent injury. Rating the pain 3 out of 10 upon palpation of the affected area. No sign of pus drainage or infection noted. Denies tingling and numbness. Feels like there might be a piece of metal inside her hand. Denies chest pain, shortness of breath, fever and chills , palpitation, and all other associated symptoms. Ddx considered but are not limited to : Finger contusion versus fracture versus sprain versus paronychia Vital signs: are WNL, pt. is afebrile H&PE are most consistent with: Finger contusion ORDERS: Finger x-ray, ibuprofen ED INTERVENTIONS: DISCHARGE: At this time pt. is stable for d/c to home. Will provide printed patient care instructions, and any necessary prescriptions. Care plan and follow up instructions have been discussed with the patient prior to discharge. X-ray showed no foreign body patient to follow-up with a primary care provider this is chronic pain Other X-Ray Diagnostic Results Other X-Ray Diagnostic Results : # of Views/Limited Vs Complete: 3 View Indication: Pain EP Interpretation: Yes PA Xray: Interpretation reviewed, by supervising MD, and agrees with findings. Interpretation: no dislocation, no soft tissue swelling, no fractures, other - No foreign body seen Impression: No acute disease Electronically Signed by: Kaila Recinos PA-C Last Vital Signs Date Time Temp Pulse Resp B/P (MAP) Pulse Ox O2 Delivery O2 Flow Rate FiO2 10/25/18 13:54 98.1 77 20 129/63 (85) 98 Room Air Disposition: HOME, SELF-CARE Condition: Stable Scripts Ibuprofen* (MOTRIN*) 600 Mg Tablet 600 MG ORAL Q8H PRN for For Pain, #30 TAB 0 Refills Prov: Kaila David 10/25/18 Referrals: Maycol Durham MD (PCP) Patient Instructions: Contusion, [id number] Additional Instructions: Follow-up with your primary care provider no foreign body noted in your x-ray if continues to have pain you need to see the hand specialist Kaila David Oct 25, 2018 15:03
[2018-10-25] MEDS ORDERED: IBUPROFEN600 MG ORAL (15:04)
[2018-10-25 15:08] VITALS: BP 129/63
--- NOTE | 2018-10-25 15:11 | NUR ---
ER DISCHARGE NOTE: Patient is cleared to be discharged per RYAN BOSWELL, pt is aox4, on room air, with stable vital signs. pt was given dc and prescription instructions, pt was able to verbalize understanding, pt id band removed without complications. pt is able to ambulate with steady gait. pt took all belongings.
== END 2018-10-25 15:08 | disposition home or self-care (01) ==
LOC: EMR 14:26
DX: S60.032A Contusion of left middle finger without damage to nail, initial encounter (principal); X58.XXXA Exposure to other specified factors, initial encounter; Y93.9 Activity, unspecified; Y92.9 Unspecified place or not applicable; E78.00 Pure hypercholesterolemia, unspecified; K21.9 Gastro-esophageal reflux disease without esophagitis; I10 Essential (primary) hypertension
CPT/HCPCS: 99283